=== PATIENT | female | born 1995 | race Caucasian/White ===

== ENCOUNTER 2021-12-16 17:03 | Outpatient (CLI) | payer BC, SELFPAY ==
[2021-12-16 17:31] LABS: Basophils Absolute Auto 0.1 K/mm3 (0.0-0.1); Basophils Percent Auto 0.7 % (0.2-1.2); Eosinophils Absolute Auto 0.1 K/mm3 (0-0.3); Eosinophils Percent Auto 0.6 % (0-4.4); Hematocrit 43.2 % (37.0-47.0); Hemoglobin 14.7 g/dL (12.0-15.0); Immature Granulocyte Absolute 0.03 K/mm3 (0.00-0.031); Immature Granulocyte Percent A 0.3 % (0-0.5); Lymphocytes Percent Auto 36.7 % (18.3-44.2); Mean Corpuscular Hemoglobin 30.6 pg (26-34); Mean Platelet Volume 9.9 fl (7.4-10.4); Monocytes Absolute Auto 0.8 K/mm3 (0.1-0.6); Monocytes Percent Auto 6.6 % (2.6-8.5); Neutrophils Absolute Auto 6.5 K/mm3 (1.3-6.7); Neutrophils Percent Auto 55.1 % (45.5-73.1); Platelet Count Result 364 k/mm3 (150-375); Red Cell Distribution Width 12.1 % (11.5-14.5); White Blood Count 11.7 K/mm3 (4.5-10.0)
[2021-12-16 17:45] LABS: Alanine Aminotransferase 24 U/L (4-35); Albumin Level 4.7 g/dL (3.5-5.1); Alkaline Phosphatase 61 U/L (38-126); Anion Gap 10 mmol/L (8-16); Aspartate Amino Transferase 32 U/L (14-36); Bilirubin,Total 0.3 mg/dL (0.2-1.3); Blood Urea Nitrogen 14 mg/dL (7-17); Calcium 9.6 mg/dL (8.4-10.2); Carbon Dioxide 25 mmol/L (22-30); Chloride 102 mmol/L (98-107); Cholesterol 244 mg/dL (0-200); Estimated Glomerular Filt Rate > 60; Glucose 102 mg/dL (65-110); HDL Direct 66 mg/dL; Sodium 137 mmol/L (137-145); Triglycerides 185 mg/dL (<150)
[2021-12-16 17:46] LABS: Hemoglobin A1C 5.2 % (<5.7)
[2021-12-16 17:58] LABS: LDL Cholesterol Direct 142 mg/dL
[2021-12-16 18:00] LABS: Vitamin D 25 Hydroxy 49.1 ng/mL
[2021-12-16 19:00] LABS: Folic Acid > 20.0 ng/mL (2.76->20)
[2021-12-17 11:39] LABS: Free T4 Free Thyroxine Reflex 1.17 ng/dL (0.78-2.19)
[2021-12-17 12:34] LABS: Total Triiodothyronine (T3) 1.84 NG/ML (0.97-1.69)
== END 2021-12-16 17:04 | disposition home or self-care (01) ==
LOC: ANHLAB 17:09
PROVIDERS: PCP Nurse Practitioner Family; Visit Provider Nurse Practitioner Family
DX: Z13.29 Encounter for screening for other suspected endocrine disorder (principal); Z13.0 Encounter for screening for diseases of the blood and blood-forming organs and certain disorders involving the immune mechanism; Z13.1 Encounter for screening for diabetes mellitus; Z13.220 Encounter for screening for lipoid disorders; Z13.9 Encounter for screening, unspecified
CPT/HCPCS: 36415; 80053; 80061; 82306; 82607; 82746; 83036; 84439; 84443; 84480; 85025

== ENCOUNTER 2024-06-01 08:47 | Emergency (ER) | payer BC, SELFPAY ==
[2024-06-01 08:54] VITALS: BP 132/80; PULSE 108; RESP 14; TEMP 36.1; O2SAT 100
--- NOTE | 2024-06-01 08:56 | ED.URI ---
HPI - URI/Sore Throat General Chief Complaint: Upper Respiratory Infection Stated Complaint: Sore Throat/Ear Pain Time Seen by Provider: 06/01/24 09:15 Source: patient, RN notes reviewed and old records reviewed Mode of arrival: ambulatory Limitations: no limitations History of Present Illness HPI Narrative: 29 year old female who presents to express care with illness since Tuesday. She reports sore throat, ear pain, cough, fevers body aches nasal congestion fevers up to 100.3F. Patient reports throat is very sore and cough is keeping her awake at night.Patient reports that She took home COVID test on Tuesday which was negative. She states that she has taken Ibuprofen and Tylenol and took some [facility] [place] cold medication but then read she shouldn't take that with her Lexapro. Patient reports that cough is productive at times of clear mucous. MD elicited complaint: fever, cough, sore throat, nasal congestion and other (ear pain, body aches) Onset (ago): day(s) (4) Pain scale (0-10): 5 Description of mucous: clear Able to tolerate fluids by mouth: Yes Treatments prior to arrival: acetaminophen, ibuprofen and cold medicine Related Data Home Medications Medication Instructions Recorded Confirmed desogestrel 0.15 mg-ethinyl 1 tablet PO DAILY 01/27/24 06/01/24 estradiol 0.03 mg tablet (Apri) valacyclovir 1 gram tablet 1,000 mg PO DAILY PRN 01/27/24 04/24/24 Allergies Allergy/AdvReac Type Severity Reaction Status Date / Time amoxicillin Allergy Hives Verified 06/01/24 09:10 Sulfa (Sulfonamide Allergy Hives Verified 06/01/24 09:10 Antibiotics) Review of Systems Review of Systems: CONSTITUTIONAL: Reports malaise, chills, sweats, or fever. EYES: Denies visual changes, redness, or discharge. ENT: Reports rhinorrhea, congestion, sinus pain, otalgia and sore throat. CARDIOVASCULAR: Denies chest pain, palpitations, or edema. RESPIRATORY: Reports cough.? Denies dyspnea. GASTROINTESTINAL: Denies abdominal pain, nausea, vomiting, diarrhea SKIN: Denies rash or itching. MUSCULOSKELETAL:Reports myalgia. NEUROLOGIC: Denies headache. All systems reviewed & are unremarkable except as noted in HPI and below PMFSH Past Medical History Medical History Anxiety Cold sore Episodic migraine Headache Hyperlipemia Obese Surgical History Surgical History H/O knee surgery Hx of tonsillectomy Family History Family History Father Hypertension Grandparent Diabetes mellitus Cancer Heart disease Social History Social History Smoking status: Never smoker Alcohol intake: current Substance use: never Substance use type: does not use Occupation/Education: occupation Agree to blood products: Yes Comments At time of signature, agree with nursing past medical, surgical, social and family history. There is no relevant family history pertinent to the presenting complaint Exam Narrative: GENERAL: Well-appearing, well-nourished, and in no acute distress. HEAD: Normocephalic EYES: PERRLA, conjunctivae clear ENT: Nares clear, turbinates edematous and erythematous, clear discharge. Mucous membranes moist. TM pearly fernandez with dull light reflex bilaterally; no tragal tenderness. Oropharynx erythematous without lesions. Tonsils not present and without exudate, no drooling, no hoarseness, no trismus, uvula midline.post nasal drainage NECK: Supple. No lymphadenopathy CHEST: Clear to auscultation, breath sounds equal. No wheezing, rhonchi, rales, or stridor. No respiratory distress, speaks in full sentences.productive cough SAO2 100% on room air HEART: Regular rate and rhythm. No murmur heard. SKIN: Warm, dry, no rash. NEURO: Alert and oriented x3. PSYCH: Normal mood
[2024-06-01 09:17] LABS: EDINFLUASCREEN Negative; EDINFLUBSCREEN Negative; EDSTREPNEGPOS1 Presumptive Negative
== END 2024-06-01 09:34 | disposition home or self-care (01) ==
PROVIDERS: Emergency Provider Registered Nurse; PCP Nurse Practitioner Family
DX: U07.1 COVID-19 (principal); E78.5 Hyperlipidemia, unspecified; E66.9 Obesity, unspecified; Z68.35 Body mass index [BMI] 35.0-35.9, adult; F41.9 Anxiety disorder, unspecified
CPT/HCPCS: 87081; 87426; 87804; 87880; 99213; G0463